=== PATIENT | female | born 1945 | race Two or more races ===

== ENCOUNTER 2022-12-25 08:16 | Inpatient (IN) | payer OTHER ==
[~2022-12-25] VITALS: Ht 154.9 cm; Wt 97.5 kg
[2022-12-25] MEDS ORDERED: HORIZANT300 MG PO (09:00)
[2022-12-25] MEDS ORDERED: SIMVAST PO (09:00)
[2022-12-25] MEDS ORDERED: TIROSINT50 MCG PO (09:35)
[2022-12-31] MEDS ORDERED: ATORVASTATIN CA80 MG (09:02)
[2022-12-31] MEDS ORDERED: GABAPENTIN300 M2 (09:02)
[2022-12-31] MEDS ORDERED: DULOXETINE HCL30 MG (09:02)
[2022-12-31] MEDS ORDERED: RESTORIL30 MG (09:02)
[2022-12-31] MEDS ORDERED: LEVOTHYROXINE75 MCG (09:02)
== END 2023-01-01 18:09 | DRG 470 ==
LOC: O/R 12-30 06:28 → SURG 12-30 10:00 → EDBD 12-30 10:30 → SURG 12-30 10:30
PROVIDERS: ADMIT Orthopaedic Surgery; ATTEND Orthopaedic Surgery
PROC: 0SRD0JZ Replacement of Left Knee Joint with Synthetic Substitute, Open Approach (ICD-10-PCS; principal; 2022-12-30 10:00)
DX: M17.12 Unilateral primary osteoarthritis, left knee (principal); D62 Acute posthemorrhagic anemia; M85.662 Other cyst of bone, left lower leg

== ENCOUNTER 2024-07-12 09:37 | Inpatient (IN) | payer OTHER ==
[~2024-07-12] VITALS: Ht 152.4 cm; Wt 93.4 kg
[~2024-07-12 09:37] MED LIST: ATORVASTATIN CA80 MG; DULOXETINE HCL30 MG; GABAPENTIN300 M2; HORIZANT300 MG PO; LEVOTHYROXINE75 MCG; RESTORIL30 MG; SIMVAST PO; TIROSINT50 MCG PO
[2024-07-12] MEDS ORDERED: TOPROL XL25 M1 PO (09:40)
[2024-07-12] MEDS ORDERED: ORAPRED ODT10 MG PO (09:41)
[2024-07-12] MEDS ORDERED: MELOXICAM15 MG PO (09:41)
[2024-07-12 09:46] VITALS: BP 160/71
[2024-07-12 09:48] LABS: HEMATOCRIT 41.9 % (36.0-45.00); HEMOGLOBIN 13.6 g/dL (12.0-15.00); MEAN CELL VOLUME 85.1 fL (80.00-100.00); MEAN CORPUSCULAR HEMOGLOBIN 27.7 pg (27.00-32.0); MEAN CORPUSCULAR HGB CONC 32.5 g/dl (32.0-36.0); PLATELET COUNT 258 K/uL (150-450); RED BLOOD COUNT 4.93 M/uL (4.00-6.00)
[2024-07-12 09:58] LABS: URINE APPEARANCE Clear; URINE BILIRRUBIN Negative (NEGATIVE); URINE BLOOD Negative; URINE COLOR Yellow; URINE GLUCOSE Negative (NEGATIVE); URINE KETONE Negative (NEGATIVE); URINE LEUKOCYTE Negative; URINE NITRATE Negative; URINE PROTEIN Negative (NEGATIVE)
[2024-07-12 09:59] LABS: URINE BACTERIA 1201.8 uL (0.0-1933); URINE EPITHELIAL CELLS 21.3 uL (0.0-38.8); URINE WBC 6.4 uL (0.0-23.2)
[2024-07-12 10:17] LABS: INR 0.97; PARTIAL THROMBOPLASTIN TIME 32.2 SECONDS (22.0-34.0); PROTHROMBIN TIME 10.6 SECONDS (9.0-11.5)
[2024-07-12 10:31] LABS: ALBUMIN 3.5 gm/dL (3.4-5.0); BILIRUBIN TOTAL 1.09 mg/dL (0.3-1.2); CALCIUM 9.3 mg/dL (8.5-10.1); CREATININE SERUM 0.57 mg/dL (0.55-1.02); GFR 102.85; GLOBULINA 3.4 G/DL (2.4-3.5); POTASSIUM 4.82 mEq/L (3.5-5.1); TOTAL PROTEIN 6.9 gm/dL (6.4-8.2)
[2024-07-19] MEDS ORDERED: ONDANSETRON HCL 2 MG/ML VIAL IV PRN (10:45)
[2024-07-19] MEDS ORDERED: OxyCODONE HCL/APAP UD (PERCOCET) PO PRN (10:45)
[2024-07-19] MEDS ORDERED: CEFAZOLIN SODIUM 1,000 MG VIAL IV SCH (12:00)
[2024-07-19] MEDS ORDERED: TRANEXAMIC ACID 100MG/1ML (1000MG) AMPUL IV ONE ×2 (12:00→12:15)
[2024-07-19] MEDS ORDERED: MORPHINE SULFATE 4 MG/ML CARTRIDGE IV SCH (12:00)
[2024-07-19] MEDS ORDERED: MORPHINE SULFATE 4 MG/ML VIAL IV ONE (12:15)
[2024-07-19] MEDS ORDERED: VANCOMYCIN HCL 1,000 MG VIAL IR ONE (12:15)
[2024-07-19] MEDS ORDERED: KETOROLAC TROMETHAMINE 60 MG VIAL IM ONE (12:15)
[2024-07-19] MEDS ORDERED: CEFAZOLIN SODIUM 1,000 MG VIAL IV ONE (12:15)
[2024-07-19 15:59] VITALS: BP 139/71
[2024-07-19] MEDS ORDERED: FAMOtidine 20 MG TABLET PO SCH (21:00)
[2024-07-19] MEDS ORDERED: ORPHENADRINE CITRATE 100 MG TABLET PO SCH (21:00)
[2024-07-19] MEDS ORDERED: GABAPENTIN 100 MG CAPSULE PO SCH (21:00)
[2024-07-20] VITALS: BP 125/60
[2024-07-20 01:15] LABS: HEMATOCRIT 35.8 % (36.0-45.00); MEAN CELL VOLUME 83.4 fL (80.00-100.00); MEAN CORPUSCULAR HEMOGLOBIN 28.1 pg (27.00-32.0); MEAN CORPUSCULAR HGB CONC 33.7 g/dl (32.0-36.0); PLATELET COUNT 198 K/uL (150-450); RED BLOOD COUNT 4.29 M/uL (4.00-6.00); RED CELL DISTRIBUTION WIDTH 14.6 % (11.5-14.5)
[2024-07-20] MEDS ORDERED: LEVOTHYROXINE SODIUM 75 MCG TABLET PO SCH (06:00)
[2024-07-20 08:41] VITALS: BP 102/60
[2024-07-20] MEDS ORDERED: APIXABAN 2.5 MG TABLET PO SCH (09:00)
[2024-07-20] MEDS ORDERED: METOPROLOL SUCCINATE 25 MG TAB.SR.24H PO SCH (09:00)
[2024-07-20 16:08] VITALS: BP 135/78
[2024-07-20] MEDS ORDERED: VITAMIN B COMPLEX 1 EACH PO SCH (17:00)
[2024-07-20] MEDS ORDERED: Cyanocobalamin/Mecobalamin 1 TAB.SL SL SCH (17:00)
[2024-07-20] MEDS ORDERED: SOD FERRIC GLUC COMPLX/SUCROSE 62.5 MG/5 ML AMPUL IV SCH (17:00)
[2024-07-21 00:57] VITALS: BP 128/71
[2024-07-21 03:03] LABS: HEMATOCRIT 31.7 % (36.0-45.00); HEMOGLOBIN 10.7 g/dL (12.0-15.00); MEAN CELL VOLUME 84.1 fL (80.00-100.00); MEAN CORPUSCULAR HEMOGLOBIN 28.3 pg (27.00-32.0); MEAN CORPUSCULAR HGB CONC 33.6 g/dl (32.0-36.0); PLATELET COUNT 179 K/uL (150-450); RED BLOOD COUNT 3.77 M/uL (4.00-6.00); RED CELL DISTRIBUTION WIDTH 14.3 % (11.5-14.5)
[2024-07-21 08:00] VITALS: BP 140/77
[2024-07-21] MEDS ORDERED: ELIQUIS2.5 MG PO (11:37)
[2024-07-21] MEDS ORDERED: GABAPENTIN100 MG PO (11:37)
[2024-07-21] MEDS ORDERED: NORFLEX100MG PO (11:37)
[2024-07-21] MEDS ORDERED: OXYC1TAB9 PO (11:37)
== END 2024-07-21 22:35 | DRG 470 ==
LOC: O/R 07-19 06:37 → SURH 07-19 09:15 → OB/GYN 07-19 13:41
PROVIDERS: ADMIT Orthopaedic Surgery; ATTEND Orthopaedic Surgery
PROC: 0SRC0JZ Replacement of Right Knee Joint with Synthetic Substitute, Open Approach (ICD-10-PCS; principal; 2024-07-19 09:15)
DX: M17.0 Bilateral primary osteoarthritis of knee (principal); D62 Acute posthemorrhagic anemia; M85.662 Other cyst of bone, left lower leg; E03.9 Hypothyroidism, unspecified; E78.5 Hyperlipidemia, unspecified; M85.661 Other cyst of bone, right lower leg; Z96.653 Presence of artificial knee joint, bilateral